=== PATIENT | male | born 1985 | race Two or more races ===

== ENCOUNTER 2018-09-02 23:41 | Emergency (ER) | payer SELFPAY, BC, MEDICAID | END 2018-09-03 00:16 | disposition left against medical advice (07) | LOC: FTE 23:41 | DX: Z53.21 Procedure and treatment not carried out due to patient leaving prior to being seen by health care provider (principal) ==

== ENCOUNTER 2018-09-21 23:34 | Emergency (ER) | payer SELFPAY | END 2018-09-22 01:37 | disposition home or self-care (01) | LOC: FTE 23:34 | DX: J00 Acute nasopharyngitis [common cold] (principal); R40.2412 Glasgow coma scale score 13-15, at arrival to emergency department | CPT/HCPCS: 99282 ==